=== PATIENT | female | born 1950 | race African-American/Black ===

== ENCOUNTER 2016-06-13 19:49 | Emergency (ER) | payer MEDICARE ==
[~2016-06-13 19:49] MED LIST: APRES50 PO; ASA5GR PO; CARD120 PO; CARDCD240 PO; CARDCD360 PO; COREG25 PO; COZAAR100 MG PO; D 5000 PO; GARLIC PO; IRON OTC PO; IRON325 MG PO; L20 PO; LEVEMFLXPN SQ; LEVEMIR SC; LOZOLTAB PO; NOVOLOG SC; OSTEO BI-FLEX1 EACH PO; PB60 PO; PRILO PO; SODIUM BICARB PO; VITAMIN D31000 UNIT PO; VITC500 PO; Z300 PO
[2016-06-13 21:56] LABS: ASCORBIC ACID (UR NOT ORDER) 40 (NEG); BILIRUBIN, URINE NEGATIVE (NEG); ER URINALYSIS TAT 0 Hrs 09 Mins; KETONE, URINE NEGATIVE (NEG); LEUKOCYTE ESTERASE(NOT OR TRACE (NEG); NITRITE (URINE) NEG (NEG); WBC (NOT ORDERED) (RFLEX) 19 (0-5)
[2016-06-13 22:09] LABS: BASOPHILS 0.1 %; BASOPHILS ABSOLUTE 0.01 10/3/uL (0.0-0.16); EOSINOPHILS 1.7 %; EOSINOPHILS ABSOLUTE 0.16 10/3/uL (0.0-0.53); IMMATURE GRANULOCYTES 0.4 %; IMMATURE GRANULOCYTES ABSOLUTE 0.04 10/3/uL (0.0-0.11); LYMPHOCYTES 25.6 %; LYMPHOCYTES ABSOLUTE 2.46 10/3/uL (0.67-4.30); MEAN CORPUSCULAR HEMOGLOB 31.6 pg (26.0-34.0); MEAN PLATELET VOLUME 10.9 fL (9.2-13.0); MONOCYTES 8.1 %; MONOCYTES ABSOLUTE 0.78 10/3/uL (0.21-1.20); NEUTROPHILS 64.1 %; NEUTROPHILS ABSOLUTE 6.17 10/3/uL (2.02-8.40); PLATELET COUNT 270 10/3/uL (150-400); RBC DISTRIBUTION WIDTH 14.6 % (12.0-16.0); WHITE BLOOD CELLS 9.6 10/3/uL (4.5-10.5)
[2016-06-13 22:12] LABS: HEMATOCRIT 36.7 % (36.0-48.0); MANUAL DIFF NO %; MEAN CORPUS HGB CONC 32.7 g/dL (32.0-36.0); MEAN CORPUSCULAR VOLUME 96.6 fL (80-100)
[2016-06-13 22:17] LABS: INTERNATIONAL NORMAL RATI 1.1 UNITS (-); PROTIME (NOT ORD) 13.8 SEC (12.0-14.5)
[2016-06-13 22:18] LABS: PARTIAL THROMBO TIME 32.8 SEC (22.5-37.2)
[2016-06-13 22:27] LABS: CALCIUM, SERUM 8.5 MG/DL (8.5-10.4); CHEST PAIN PROFILE TAT 0 Hrs 22 Mins; CHLORIDE, SERUM 98 MMOL/L (96-112); CO2 (CARBON DIOXIDE) 25 MMOL/L (24-34); SODIUM, SERUM 135 MMOL/L (135-148); TROPONIN I <0.02 NG/ML (<0.05)
[2016-06-13 22:30] LABS: BUN (BLOOD UREA NITROGEN) 107 MG/DL (6-23); CREATININE 8.85 MG/DL (0.55-1.02); GFR AFRICAN AMERICAN 5 ML/MIN (>=60); GFR NON AFRICAN AMERICAN 4 ML/MIN (>=60); GLUCOSE, SERUM 81 MG/DL (60-99); POTASSIUM, SERUM 6.9 MMOL/L (3.5-5.3)
[2016-06-14 01:18] LABS: CALCIUM, SERUM 8.1 MG/DL (8.5-10.4); CHLORIDE, SERUM 98 MMOL/L (96-112); CO2 (CARBON DIOXIDE) 24 MMOL/L (24-34); SODIUM, SERUM 136 MMOL/L (135-148)
[2016-06-14 01:19] LABS: BUN (BLOOD UREA NITROGEN) 113 MG/DL (6-23); CREATININE 8.82 MG/DL (0.55-1.02); GFR AFRICAN AMERICAN 5 ML/MIN (>=60); GFR NON AFRICAN AMERICAN 4 ML/MIN (>=60); GLUCOSE, SERUM 145 MG/DL (60-99); POTASSIUM, SERUM 6.8 MMOL/L (3.5-5.3)
== END 2016-06-14 02:26 | disposition home or self-care (01) ==
LOC: ER 19:49
PROVIDERS: Specialist
DX: E87.5 Hyperkalemia (principal); I12.0 Hypertensive chronic kidney disease with stage 5 chronic kidney disease or end stage renal disease; N18.6 End stage renal disease; E11.22 Type 2 diabetes mellitus with diabetic chronic kidney disease; D64.9 Anemia, unspecified; Z99.2 Dependence on renal dialysis; Z88.8 Allergy status to other drugs, medicaments and biological substances; Z91.012 Allergy to eggs; Z79.899 Other long term (current) drug therapy; Z79.82 Long term (current) use of aspirin
CPT/HCPCS: 70450; 71010; 80048; 81001; 82962; 83735; 84484; 85025; 85610; 85730; 93005; 94640; 96374; 99285; A9270-GY; J0610